=== PATIENT | male | born 1955 | race Caucasian/White ===

== ENCOUNTER 2019-09-07 17:55 | Emergency (ER) | payer SELFPAY ==
[~2019-09-07] VITALS: Ht 167.6 cm; Wt 65.9 kg
--- NOTE | 2019-09-07 18:09 | PHYS DOC ---
Past History Past Medical History: Alcoholism, Arthritis, CAD, COPD, Heart Disease, Hypertension Past Surgical History: Angioplasty Smoking: Cigarettes Alcohol Use: Heavy Adult General Chief Complaint Chief Complaint: WEAKNESS/GENERALIZED..." [facility]... but [facility] said I had to go to hospital or go to [facility]... so I am here.. I was sleeping off a good beer drinking run.. I got a check .. so I was drinking it up... ".." This is bull shiit.. I don't want to be here.. but I did nt want to go to the [facility]... " HPI HPI Patient is a 64 year old male who presents with above hx and no specific complaints . Patient reportedly found passed by the Police Department and told he must go to the emergency department or go to [facility]. Patient does state he drinks heavily particularly when he checked comes in the first month. Patient does drink of choice is beer. Patient does not have seizures with withdrawal on alcohol. Patient states he has be more short of breath and more weak recently. Patient normally follows [facility]. No change in medications. Has been compliant with the exception of excessive alcohol use. No recent travel. No specific ill contacts. No history immunosuppression. Does have history coronary artery disease, MIs, stents and COPD. Review of Systems Review of Systems Constitutional: Denies fever or chills [] Eyes: Denies change in visual acuity, redness, or eye pain [] HENT: Denies nasal congestion or sore throat [] Respiratory: History of chronic cough Cardiovascular: No additional information not addressed in HPI [] GI: Denies abdominal pain, nausea, vomiting, bloody stools or diarrhea [] : Denies dysuria or hematuria [] Musculoskeletal: Denies back pain or joint pain [] Integument: Denies rash or skin lesions [] Neurologic: Denies headache, focal weakness or sensory changes [] Endocrine: Denies polyuria or polydipsia [] All other systems were reviewed and found to be within normal limits, except as documented in this note. Family History Family History Noncontributory to presentation Current Medications Current Medications See nursing for home meds Allergies Allergies No known drug allergies Physical Exam Physical Exam Constitutional: no acute distress, intoxicated in appearance. [] HENT: Normocephalic, atraumatic, bilateral external ears normal, oropharynx moist, no oral exudates, nose normal. Oral dentition Eyes: PERRLA, EOMI, conjunctiva normal, no discharge. [] Neck: Normal range of motion, no tenderness, supple, no stridor. [] Cardiovascular:Heart rate regular rhythm, no murmur []WA to the left Lungs & Thorax: Bilateral breath sounds with apex with scattered wheezes on auscultation [] Abdomen: Bowel sounds normal, soft, no tenderness, no masses, no pulsatile masses. [] Skin: Warm, dry, no erythema, no rash. Poor turgor Back: No tenderness, no CVA tenderness. [] Extremities: No tenderness, no cyanosis, no clubbing, ROM intact, no edema. 3 changes Neurologic: Alert and oriented X 3, moves all extremities on request, has distal sensory,, no focal deficits noted. Discoordinated and slightly wide gait Psychologic: Affect angry, judgement normal, mood normal. [] EKG EKG [][place] [address] IMAGING REPORT Signed PATIENT: COLE MATHEW ACCOUNT: [id number] : 1955 LOCATION: ER AGE: 64 SEX: M EXAM STATUS: REG ER ORD. PHYSICIAN: MARY JACOBO MD REASON: Epigastric discomfort PROCEDURE: ACUTE ABDOMEN SERIES Exam: Acute abdominal series INDICATION: Epigastric discomfort TECHNIQUE: Frontal view of the chest with upright and supine views of the abdomen Comparisons: None FINDINGS: The cardiomediastinal silhouette and pulmonary vessels are within normal limits. The lung and pleural spaces are clear. Air and stool are noted throughout the colon to level the rectum in a nonobstructive bowel gas pattern. No suspicious masses or calcifications. Visualized osseous structures are unremarkable. IMPRESSION: 1. No acute cardiopulmonary process. 2. Nonobstructive bowel gas pattern. Electronically signed by: Geeta Darden MD (09/07/2019 7:06 PM) [id number] DICTATED AND SIGNED BY: GEETA DARDEN MD DATE: 09/07/19 1906 CC: MARY JACOBO MD; PCP,NO ~ Radiology/Procedures Radiology/Procedures [] Course & Med Decision Making Course & Med Decision Making Pertinent Labs and Imaging studies reviewed. (See chart for details) Patient encouraged to stop drinking tonight at least. Follow-up at [facility]. Return if any concerns. Patient was ambulatory without problems at time of discharge. Impression: 1. Alcohol intoxication ETOH 259 [] Dragon Disclaimer Dragon Disclaimer This electronic medical record was generated, in whole or in part, using a voice recognition dictation system. Departure Departure: Disposition: HOME/RESIDENCE PRIOR TO ADM Condition: STABLE Dragon Disclaimer This chart was dictated in whole or in part using Voice Recognition software in a busy, high-work load, and often noisy Emergency Department environment. It may contain unintended and wholly unrecognized errors or omissions. Dragon Disclaimer This chart was dictated in whole or in part using Voice Recognition software in a busy, high-work load, and often noisy Emergency Department environment. It may contain unintended and wholly unrecognized errors or omissions. MARY JACOBO MD Sep 07, 2019 18:09
[2019-09-07] MEDS ORDERED: IV RINGERS SOLUTION,LACTATED 1,000 ML IV SCH (18:37)
[2019-09-07] MEDS ORDERED: MVI, ADULT NO.4 WITH VIT K 10 ML, FOLIC ACID INJ 1 MG, THIAMINE INJ 100 MG in IV RINGER... IV ONE ×4 (18:45)
[2019-09-07 18:58] LABS: BASO # 0.2 x10^3/uL (0.0-0.2); BASO % 1 % (0-3); EOS # 0.6 x10^3/uL (0.0-0.7); EOS % 6 % (0-3); HEMATOCRIT 48.1 % (39.0-53.0); HEMOGLOBIN 15.7 g/dL (13.0-17.5); LYMPH # 4.5 x10^3/uL (1.0-4.8); LYMPH % 42 % (24-48); MEAN CORPUSCULAR HEMOGLOBIN 33 pg (25-35); MEAN CORPUSCULAR HGB CONC 33 g/dL (31-37); MEAN CORPUSCULAR VOLUME 100 fL (79-100); MONO # 0.8 x10^3/uL (0.0-1.1); MONO % 8 % (0-9); NEUT # 4.6 x10^3uL (1.8-7.7); NEUT % 43 % (31-73); PLATELET COUNT 349 x10^3/uL (140-400); RED BLOOD COUNT 4.81 x10^6/uL (4.30-5.70); RED CELL DISTRIBUTION WIDTH 15.1 % (11.5-14.5); WHITE BLOOD COUNT 10.7 x10^3/uL (4.0-11.0)
--- NOTE | 2019-09-07 19:09 | RAD ---
Exam: Acute abdominal series INDICATION: Epigastric discomfort TECHNIQUE: Frontal view of the chest with upright and supine views of the abdomen Comparisons: None FINDINGS: The cardiomediastinal silhouette and pulmonary vessels are within normal limits. The lung and pleural spaces are clear. Air and stool are noted throughout the colon to level the rectum in a nonobstructive bowel gas pattern. No suspicious masses or calcifications. Visualized osseous structures are unremarkable. IMPRESSION: 1. No acute cardiopulmonary process. 2. Nonobstructive bowel gas pattern. Electronically signed by: Cale Ariza MD (09/07/2019 7:06 PM) [id number]
[2019-09-07 19:18] LABS: CALCIUM 9.9 mg/dL (8.5-10.1); CREATININE 0.7 mg/dL (0.7-1.3); GFR 112.8; POTASSIUM 3.7 mmol/L (3.5-5.1)
[2019-09-07 19:19] LABS: BARBITURATES NEG (NEG); BENZODIAZEPINES NEG (NEG); CANNABINOIDS NEG (NEG); COCAINE NEG (NEG); METHADONE NEG (NEG); OPIATES NEG (NEG); PHENCYCLIDINE NEG (NEG)
[2019-09-07 19:21] LABS: AMPHETAMINE/METHAMPHETAMINE NEG (NEG)
[2019-09-07 19:24] LABS: DIRECT BILIRUBIN 0.1 mg/dL (0.0-0.2); MAGNESIUM 2.2 mg/dL (1.8-2.4); TOTAL BILIRUBIN 0.3 mg/dL (0.2-1.0); TOTAL PROTEIN 7.8 g/dL (6.4-8.2)
[2019-09-07 19:31] LABS: BACTERIA,URINE 0 /HPF (0-FEW); BILIRUBIN,URINE NEG (NEG); CLARITY,URINE CLEAR; COLOR,URINE STRAW; GLUCOSE,URINE NEG (NEG); NITRITE,URINE NEG (NEG); RBC,URINE 0 /HPF (0-2); UROBILINOGEN,URINE 0.2 mg/dL (0.2 mg/dL); WBC,URINE 0 /HPF (0-4)
[2019-09-07 19:54] LABS: % BASOS 1 % (0-3); % EOS 2 % (0-5); % LYMPHS 48 % (24-48); % MONOS 10 % (0-10); % SEGS 39 % (35-66)
[2019-09-07 19:55] LABS: PLT ESTIMATE ADEQUATE (ADEQUATE)
[2019-09-07 20:31] VITALS: BP 101/62
--- NOTE | 2019-09-08 00:12 | EKG ---
[address] [address] Test Date: 2019-09-07 Test Time: 19:02:37 Pat Name: COLE MATHEW Department: Room: Gender: M [employer]: : 1955 Requested By: MARY JACOBO Order Number: [id number] Reading MD: Measurements Intervals Honor Rate: 80 P: 51 AK: 146 QRS: 48 QRSD: 90 T: 0 QT: 380 QTc: 442 Interpretive Statements SINUS RHYTHM LEFT ATRIAL ABNORMALITY ABNORMAL ECG RI6.01 No previous ECG available for comparison
== END 2019-09-07 20:34 | disposition home or self-care (01) ==
LOC: ER 17:55
DX: F10.229 Alcohol dependence with intoxication, unspecified (principal); M19.90 Unspecified osteoarthritis, unspecified site; I25.10 Atherosclerotic heart disease of native coronary artery without angina pectoris; J44.9 Chronic obstructive pulmonary disease, unspecified; I11.9 Hypertensive heart disease without heart failure; F17.210 Nicotine dependence, cigarettes, uncomplicated; Z98.61 Coronary angioplasty status; Y90.8 Blood alcohol level of 240 mg/100 ml or more
CPT/HCPCS: 36415; 74022; 80048; 80076; 80307; 81001; 82550; 83690; 83735; 84484; 85007; 85025; 93005; 96365; 99285; G0480; J7120

== ENCOUNTER 2021-11-09 05:25 | Emergency (ER) | payer OTHER ==
[~2021-11-09] VITALS: Ht 167.6 cm; Wt 63.2 kg
--- NOTE | 2021-11-09 05:35 | PHYS DOC ---
Past History Past Medical History: Alcoholism, Arthritis, CAD, COPD, Heart Disease, Hypertension (CINDI BARAHONA DO) Past Surgical History: Angioplasty Additional Past Surgical Histo: stents (CINDI BARAHONA DO) Smoking: Cigarettes Alcohol Use: Heavy (CINDI BARAHONA DO) General Adult EDM: Chief Complaint: LOWER EXT PAIN HPI: HPI: 66-year-old male presents via EMS with bilateral lower extremity pain and facial trauma. Patient admits to drinking an unknown amount of beer tonight. He was taking out some trash bags from his apartment and believes that he fell. He is not exactly sure how he hit the ground. He called EMS because he was having bilateral leg pain below his knees. Lying on the gurney, he states that he does not currently have pain in his legs. He has no other specific complaints at this time. (CINDI BARAHONA DO) Review of Systems: Review of Systems: Constitutional: Intoxication. Denies fever or chills Eyes: Denies change in visual acuity HENT: Denies nasal congestion or sore throat Respiratory: Denies cough or shortness of breath Cardiovascular: Denies chest pain or edema GI: Denies abdominal pain, nausea, vomiting, bloody stools or diarrhea : Denies dysuria Musculoskeletal: Bilateral lower leg pain Integument: Facial abrasions Neurologic: Denies headache, focal weakness or sensory changes Endocrine: Denies polyuria or polydipsia Lymphatic: Denies swollen glands Psychiatric: Denies depression or anxiety (CINDI BARAHONA DO) Allergies: Allergies: Allergies Coded Allergies Type Severity Reaction Last Updated Verified No Known Drug Allergies 11/09/21 No (CINDI BARAHONA DO) Physical Exam: PE: Constitutional: Well developed, well nourished, no acute distress, intoxicated appearance. [] HENT: Normocephalic, atraumatic, bilateral external ears normal, oropharynx moist, no oral exudates, nose with evidence of recent bleeding. [] Eyes: PERRLA, EOMI, conjunctiva normal, no discharge. [] Neck: Normal range of motion, no tenderness, supple, no stridor. [] Cardiovascular: Heart rate regular rhythm, no murmur [] Lungs & Thorax: Bilateral breath sounds clear to auscultation [] Abdomen: Bowel sounds normal, soft, no tenderness, no masses, no pulsatile masses. [] Skin: Abrasion of the forehead and [] Back: No tenderness, no CVA tenderness. [] Extremities: No tenderness, no cyanosis, no clubbing, ROM intact, no edema. [] Neurologic: Alert and oriented X 3, normal motor function, normal sensory function, no focal deficits noted. [] Psychologic: Affect normal, judgement impaired, mood normal. [] (CINDI BARAHONA DO) EKG: EKG: [] (CINDI BARAHONA DO) Radiology/Procedures: Radiology/Procedures: [] (CINDI BARAHONA DO) Radiology/Procedures: [address] [address] IMAGING REPORT Signed PATIENT: COLE MATHEW ACCOUNT: [id number] : 1955 LOCATION: ER AGE: 66 SEX: M EXAM STATUS: REG ER ORD. PHYSICIAN: CINDI BARAHONA DO REASON: fall, facial trauma PROCEDURE: CT HEAD AND MAXILLOFACIAL WO INDICATION: Reason: fall, facial trauma / Spl. Instructions: / History: . Head, face and neck pain COMPARISON: None. TECHNIQUE: Axial CT images obtained through the head, face and cervical spine. One or more of the following individualized dose reduction techniques were utilized for this examination: 1. Automated exposure control; 2. Adjustment of the mA and/or kV according to patient size; 3. Use of iterative reconstruction technique. FINDINGS: Head: Diffuse prominence of ventricles and sulci which can be seen with age-related volume loss. Multifocal regions of low density within the white matter. Nonspecific but can be seen with small vessel ischemic changes. Multifocal regions of low-density are identified including within the left side of the cerebellum as well as the bilateral cerebral hemispheres at multiple locations including the posterior and anterior circulation region. Some of these are associated with volume loss. No definite acute intracranial hemorrhage. Cervical spine: Degenerative changes throughout the cervical spine with disc protrusions and osteophyte formation as well as facet and uncovertebral hypertrophy with multilevel central canal and neural foraminal stenosis. Portions of the cervical spine are not well evaluated secondary to patient motion. This is most severe at the C5-C6 level. No evidence of dislocation. Mild wedge deformity of the T1 vertebral body. There is some Schmorl's node formation. Calcific atherosclerosis. Cystic changes at the lung apices which can be seen with emphysema. No definite acute fracture of the visualized portion of cervical spine. Facial: Odontogenic disease is seen with some periapical lucencies at the teeth and dental caries. Mild mucosal thickening left maxillary sinus. Degenerative changes at the temporomandibular joints. No definite acute fracture IMPRESSION: * No definite acute intracranial hemorrhage. * Bilateral regions of low density and volume loss are identified including within the bilateral cerebral hemispheres as well as the left side of the cerebellum. These could all be secondary to encephalomalacia from prior infarcts but there is no comparison available for review to assess whether any of these regions of low-density are a change from baseline. If the patient is having acute symptoms and additional clarification is needed MRI could better assess acuity. * Degenerative changes throughout the cervical spine with central canal and neural foraminal stenosis. Portion of the cervical spine is limited secondary to patient motion but no definite acute fracture is seen. * No definite acute facial fracture. Electronically signed by: Hernando Katz MD (11/09/2021 6:47 AM) [id number] DICTATED AND SIGNED BY: HERNANDO KATZ MD DATE: 11/09/21 06 CC: ELIZ GONZALEZ MD; CINDI BARAHONA DO; PCP,NO ~ (ELIZ GONZALEZ MD) Heart Score: C/O Chest Pain: N/A Risk Factors: Risk Factors: DM, Current or recent (<one month) smoker, HTN, HLP, family history of CAD, obesity. Risk Scores: Score 0 - 3: 2.5% MACE over next 6 weeks - Discharge Home Score 4 - 6: 20.3% MACE over next 6 weeks - Admit for Clinical Observation Score 7 - 10: 72.7% MACE over next 6 weeks - Early Invasive Strategies (CINDI BARAHONA DO) C/O Chest Pain: No (ELIZ GONZALEZ MD) Course & Med Decision Making: Course & Med Decision Making Pertinent Labs and Imaging studies reviewed. (See chart for details) The patient's work-up is pending. I am signing patient out to the dayshift at 0600. [] (CINDI BARAHONA DO) Dragon Disclaimer: Dragon Disclaimer: This electronic medical record was generated, in whole or in part, using a voice recognition dictation system. (CINDI BARAHONA DO) Departure Departure: Impression: Primary Impression: Alcohol intoxication Additional Impression: Facial abrasion Disposition: 01 HOME / SELF CARE / HOMELESS Condition: STABLE Referrals: PCP,DAVID (PCP) Patient Instructions: Fall Prevention and Home Safety, [place]in[facility] CINDI BARAHONA DO November 09, 2021 05:35 ELIZ GONZALEZ MD November 09, 2021 06:55
[2021-11-09] MEDS ORDERED: THIAMINE 200 MG/2 ML VIAL. IV ONE (05:46)
[2021-11-09] MEDS ORDERED: MVI, ADULT NO.4 WITH VIT K 10 ML VIAL IV ONE (05:47)
[2021-11-09] MEDS ORDERED: MVI, ADULT NO.4 WITH VIT K 10 ML, THIAMINE INJ 100 MG in IV NORMAL SALINE 1,000ML 1,000... IV ONE (06:00)
[2021-11-09 06:01] LABS: BASO # 0.1 x10^3/uL (0.0-0.2); BASO % 1 % (0-3); EOS # 0.5 x10^3/uL (0.0-0.7); EOS % 6 % (0-3); HEMATOCRIT 39.4 % (39.0-53.0); LYMPH # 3.3 x10^3/uL (1.0-4.8); LYMPH % 35 % (24-48); MEAN CORPUSCULAR HEMOGLOBIN 28 pg (25-35); MEAN CORPUSCULAR HGB CONC 33 g/dL (31-37); MEAN CORPUSCULAR VOLUME 85 fL (79-100); MONO # 0.8 x10^3/uL (0.0-1.1); MONO % 9 % (0-9); NEUT # 4.5 x10^3uL (1.8-7.7); NEUT % 49 % (31-73); PLATELET COUNT 345 x10^3/uL (140-400); RED BLOOD COUNT 4.61 x10^6/uL (4.30-5.70); RED CELL DISTRIBUTION WIDTH 15.3 % (11.5-14.5); WHITE BLOOD COUNT 9.3 x10^3/uL (4.0-11.0)
[2021-11-09 06:06] LABS: CALCIUM 9.2 mg/dL (8.5-10.1); CREATININE 0.8 mg/dL (0.7-1.3); GFR 96.1; POTASSIUM 3.7 mmol/L (3.5-5.1)
[2021-11-09 06:12] LABS: ALBUMIN 3.2 g/dL (3.4-5.0); ALBUMIN/GLOBULIN RATIO 0.9 (1.0-1.7); TOTAL BILIRUBIN 0.3 mg/dL (0.2-1.0); TOTAL PROTEIN 6.9 g/dL (6.4-8.2)
[2021-11-09 06:29] LABS: BACTERIA,URINE 0 /HPF (0-FEW); CLARITY,URINE CLEAR; COLOR,URINE YELLOW; GLUCOSE,URINE NEG (NEG); NITRITE,URINE NEG (NEG); RBC,URINE 0 /HPF (0-2); UROBILINOGEN,URINE 0.2 mg/dL (0.2 mg/dL); WBC,URINE 0 /HPF (0-4)
--- NOTE | 2021-11-09 06:49 | RAD ---
INDICATION: Reason: fall, facial trauma / Spl. Instructions: / History: . Head, face and neck pain COMPARISON: None. TECHNIQUE: Axial CT images obtained through the head, face and cervical spine. One or more of the following individualized dose reduction techniques were utilized for this examinat ion: 1. Automated exposure control; 2. Adjustment of the mA and/or kV according to patient size; 3 . Use of iterative reconstruction technique. FINDINGS: Head: Diffuse prominence of ventricles and sulci which can be seen with age-related volume loss. Multifocal regions of low density within the white matter. Nonspecific but can be seen with small ves jey ischemic changes. Multifocal regions of low-density are identified including within the left side of the cerebellum as well as the bilateral cerebral hemispheres at multiple locations including the posterior and anterior circulation region. Some of these are associated with volume loss. No definite acute intracranial hemorrhage. Cervical spine: Degenerative changes throughout the cervical spine with disc protrusions and osteophyte formation as well as facet and uncovertebral hypertrophy with multilevel central canal and neural foraminal stenos is. Portions of the cervical spine are not well evaluated secondary to patient motion. This is most sever e at the C5-C6 level. No evidence of dislocation. Mild wedge deformity of the T1 vertebral body. There is some Schmorl's node formation. Calcific atherosclerosis. Cystic changes at the lung apices which can be seen with emphysema. No definite acute fracture of the visualized portion of cervical spine. Facial: Odontogenic disease is seen with some periapical lucencies at the teeth and dental caries. Mild mucosal thickening left maxillary sinus. Degenerative changes at the temporomandibular joints. No definite acute fracture IMPRESSION: * No definite acute intracranial hemorrhage. * Bilateral regions of low density and volume loss are identified including within the bilateral cer ebral hemispheres as well as the left side of the cerebellum. These could all be secondary to encepha lomalacia from prior infarcts but there is no comparison available for review to assess whether any o f these regions of low-density are a change from baseline. If the patient is having acute symptoms an d additional clarification is needed MRI could better assess acuity. * Degenerative changes throughout the cervical spine with central canal and neural foraminal stenosi s. Portion of the cervical spine is limited secondary to patient motion but no definite acute fractur e is seen. * No definite acute facial fracture. Electronically signed by: Topher Esposito MD (11/09/2021 6:47 AM) [id number]
--- NOTE | 2021-11-09 06:50 | RAD ---
Report is under the CT head and face accession. Electronically signed by: Topher Esposito MD (11/09/2021 6:47 AM) [id number]
[2021-11-09 07:05] VITALS: BP 107/68
== END 2021-11-09 07:45 | disposition home or self-care (01) ==
LOC: ER 05:25
DX: S00.81XA Abrasion of other part of head, initial encounter (principal); F10.229 Alcohol dependence with intoxication, unspecified; M79.661 Pain in right lower leg; M79.662 Pain in left lower leg; M19.90 Unspecified osteoarthritis, unspecified site; I25.10 Atherosclerotic heart disease of native coronary artery without angina pectoris; J44.9 Chronic obstructive pulmonary disease, unspecified; I11.9 Hypertensive heart disease without heart failure; F17.210 Nicotine dependence, cigarettes, uncomplicated; Y90.9 Presence of alcohol in blood, level not specified; W18.39XA Other fall on same level, initial encounter; Y93.89 Activity, other specified; Y92.89 Other specified places as the place of occurrence of the external cause; Y99.8 Other external cause status
CPT/HCPCS: 36415; 70450; 70486; 72125; 80053; 81001; 82947; 85025; 96365; 96366; 99284; J7030